=== PATIENT | female | born 2000 | race Asian ===

== ENCOUNTER 2022-10-31 11:40 | Outpatient (RCR) | payer BC, SELFPAY | END 2023-02-21 23:59 | disposition home or self-care (01) | PROVIDERS: PCP Physician Assistant Medical; Visit Provider Family Medicine | DX: R42 Dizziness and giddiness (principal); Z51.89 Encounter for other specified aftercare | CPT/HCPCS: 97161 ==

== ENCOUNTER 2023-12-27 08:37 | Outpatient (CLI) | payer BC, SELFPAY ==
[2023-12-27 15:29] LABS: Chlamydia DNA Amplified* NOT DETECTED (No Detected); GC DNA Amplified* NOT DETECTED (No Detected)
== END 2023-12-27 08:38 | disposition home or self-care (01) ==
LOC: NFLDREF 08:37
PROVIDERS: PCP Physician Assistant Medical; Visit Provider Physician Assistant
DX: Z11.3 Encounter for screening for infections with a predominantly sexual mode of transmission (principal)
CPT/HCPCS: 87491; 87591

== ENCOUNTER 2024-04-09 15:48 | Outpatient (CLI) | payer BC, SELFPAY | END 2024-04-09 15:49 | disposition home or self-care (01) | LOC: FRMREF 15:48 | PROVIDERS: PCP Physician Assistant Medical; Visit Provider Registered Nurse | DX: R39.14 Feeling of incomplete bladder emptying (principal) | CPT/HCPCS: 87086 ==

== ENCOUNTER 2025-01-01 08:48 | Outpatient (CLI) | payer OTHER, SELFPAY | END 2025-01-01 08:49 | disposition home or self-care (01) | PROVIDERS: PCP Physician Assistant Medical; Visit Provider Physician Assistant | DX: Z00.00 Encounter for general adult medical examination without abnormal findings (principal); E66.9 Obesity, unspecified; Z13.1 Encounter for screening for diabetes mellitus; Z13.29 Encounter for screening for other suspected endocrine disorder | CPT/HCPCS: 80061; 82947; 84443 ==

== ENCOUNTER 2025-04-16 09:57 | Outpatient (CLI) | payer OTHER, SELFPAY | END 2025-04-16 09:58 | disposition home or self-care (01) | LOC: LKVREF 10:00 | PROVIDERS: PCP Physician Assistant Medical; Visit Provider Family Medicine | DX: F98.8 Other specified behavioral and emotional disorders with onset usually occurring in childhood and adolescence (principal) | CPT/HCPCS: 80306 ==